=== PATIENT | male | born 1985 | race Hispanic/Latino ===

== ENCOUNTER 2017-02-03 16:03 | Emergency (ER) | payer OTHER ==
[2017-02-03 16:10] VITALS: RESP 18; O2SAT 96
[2017-02-03] MEDS ORDERED: Naproxen 550 mg Tab PO STA (17:19)
[2017-02-03] MEDS ORDERED: Naproxen 550 mg Tab PO ONE (17:26)
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
--- NOTE | 2017-02-03 18:03 | RAD ---
PROCEDURE: Cervical Spine Radiographs. HISTORY: Pain. COMPARISON: None available. FINDINGS: BONES: Alignment maintained. No acute displaced fracture identified. Dens tip obscured. DISC SPACES: Unremarkable. SOFT TISSUES: Unremarkable. No prevertebral soft tissue swelling. OTHER FINDINGS: None. IMPRESSION: No acute displaced fracture identified.
[2017-02-03 18:09] VITALS: BP 119/86; PULSE 87; TEMP 97.7
== END 2017-02-03 18:10 | disposition home or self-care (01) ==
LOC: C.ER 16:03
DX: S16.1XXA Strain of muscle, fascia and tendon at neck level, initial encounter (principal); V49.9XXA Car occupant (driver) (passenger) injured in unspecified traffic accident, initial encounter